=== PATIENT | male | born 1965 | race Two or more races ===

== ENCOUNTER 2019-03-07 15:37 | Emergency (ER) | payer MEDICAID ==
[~2019-03-07] VITALS: Ht 172.7 cm; Wt 77.1 kg
[2019-03-07] MEDS ORDERED: NEOMY/BACITRA/POLYMYXIN B OINT UD PACKET TP ONE ×2 (16:24→16:30)
[2019-03-07] MEDS ORDERED: TDAP DIPH,PERTUSS,TET VAC/PF 0.5 ML DISP.SYRIN IM ONE ×2 (16:25→16:30)
[2019-03-07] MEDS ORDERED: LIDOCAINE HCL 2% 20 ML VIAL TP ONE (16:30)
--- NOTE | 2019-03-07 16:34 | NUR ---
PT WAS EVALUATED BY DR RUANO. PT WAS D/C'd TO HOME. D/C INSTRUCTIONS GIVEN TO THE PT. NO BLEEDING.
[2019-03-07 16:35] VITALS: BP 139/85
== END 2019-03-07 16:38 | disposition home or self-care (01) ==
LOC: ER 15:37
DX: S61.412A Laceration without foreign body of left hand, initial encounter (principal); F17.200 Nicotine dependence, unspecified, uncomplicated; W29.3XXA Contact with powered garden and outdoor hand tools and machinery, initial encounter; Y93.89 Activity, other specified; Y92.89 Other specified places as the place of occurrence of the external cause; Y99.8 Other external cause status
CPT/HCPCS: 90715; A4217; A4663

== ENCOUNTER 2019-03-09 21:58 | Emergency (ER) | payer MEDICAID ==
--- NOTE | 2019-03-09 22:04 | NUR ---
Patient left without being triaged, patient stated he had something to do and will just come back another time.
== END 2019-03-09 22:10 | disposition left against medical advice (07) ==
LOC: ER 22:02
DX: Z53.21 Procedure and treatment not carried out due to patient leaving prior to being seen by health care provider (principal)

== ENCOUNTER 2019-03-10 15:18 | Emergency (ER) | payer MEDICAID ==
--- NOTE | 2019-03-10 15:32 | NUR ---
Attempted to triage pt, pt was not found in the ER waiting room.
== END 2019-03-10 15:45 | disposition left against medical advice (07) ==
LOC: ER 15:18
DX: Z53.21 Procedure and treatment not carried out due to patient leaving prior to being seen by health care provider (principal)